=== PATIENT | female | born 1980 | race Caucasian/White ===

== ENCOUNTER 2017-06-15 18:05 | Emergency (ER) | payer OTHER ==
[~2017-06-15] VITALS: Ht 167.6 cm; Wt 90.7 kg
[2017-06-15 20:15] VITALS: BP 145/85
== END 2017-06-15 20:17 | disposition home or self-care (01) ==
LOC: FSED 18:05
DX: R07.89 Other chest pain (principal); R11.0 Nausea; I10 Essential (primary) hypertension
CPT/HCPCS: 71046; 80053; 81003; 81025; 82553; 83880; 84484; 85025; 85379; 93005; 99284

== ENCOUNTER 2017-12-26 10:15 | Emergency (ER) | payer OTHER ==
[~2017-12-26] VITALS: Ht 167.6 cm; Wt 102.1 kg
--- OUTSIDE RECORDS SUMMARY | 2017-12-26 10:17 | XMS REPORT | Clinical Summary ---
Author Author [facility] Organization [facility] Address Unknown Phone Unavailable Care Team Providers Care [employer] Architect Name Role Phone Consuelo Locke MD PCP Allergies Active Allergy Reactions Severity Noted Date Comments Tetracycline 10/07/2015 Current Medications Prescription Sig. Disp. Refills Start End Date Status Date valsartan-hydrochlorothia 09/03/19 Active zide (DIOVAN-HCT) 160-25 16 mg per tablet pravastatin (PRAVACHOL) 10/01/19 Active 40 MG tablet 16 levothyroxine (SYNTHROID, 10/02/19 Active LEVOTHROID) 100 MCG 16 tablet omeprazole (PriLOSEC) 20 Take 20 mg by mouth Active MG capsule daily. ranitidine (ZANTAC) 150 Take 150 mg by mouth as Active MG tablet needed for heartburn. DOCOSAHEXANOIC ACID/EPA Take by mouth daily. Active (FISH OIL ORAL) MULTIVITAMIN ORAL Take by mouth daily. Active loratadine-pseudoepHEDrin Take 1 tablet by mouth Active e (CLARITIN-D 24-hour) daily. 10-240 mg per 24 hr tablet Active Problems Problem Noted Date NAFLD (nonalcoholic fatty liver disease) 12/23/2015 Obesity (BMI 35.0-39.9 without comorbidity) 12/23/2015 Hypertension 12/23/2015 Hyperlipidemia 12/23/2015 Abnormal liver enzymes 12/23/2015 Immunity status testing 12/23/2015 Family History Medical History Relation Name Comments Heart disease Father Diabetes Maternal Grandmother Stomach cancer Maternal Uncle Diabetes Mother Pancreatic cancer Mother Pancreatic Cancer Relation Name Status Comments Father Maternal Grandmother Maternal Uncle Mother Social History Tobacco Use Types Packs/Day Years Used Date Never Smoker Alcohol Use Drinks/Week oz/Week Comments Yes Occasional Sex Assigned at Date Recorded Not on file Last Filed Vital Signs Not on file Plan of Treatment Health Maintenance Due Date Last Done Comments CERVICAL CANCER SCREENING 1999 INFLUENZA VACCINE 09/27/2017 Results Not on fileafter 12/25/2016 Insurance Payer Benefit Subscriber ID Type Phone Address Plan / Group AETNA AETNA xxxxxxxxxx HMO HMO,POS,EP O, [facility] [place] [id number]
[2017-12-26] MEDS ORDERED: KETOROLAC TROMETHAMINE 60 MG/2 ML VIAL IM ONE (10:45)
[2017-12-26] MEDS ORDERED: CEFTRIAXONE SOD 1 GM VIAL IM ONE (10:45)
[2017-12-26] MEDS ORDERED: MACROBID 100 M100 MG PO (10:55)
[2017-12-26] MEDS ORDERED: FLUCONAZOLE100 MG PO (10:55)
[2017-12-26] MEDS ORDERED: ROBAXIN-750750 MG PO (10:55)
[2017-12-26 11:17] VITALS: BP 141/89
== END 2017-12-26 11:21 | disposition home or self-care (01) ==
LOC: FSED 10:15
DX: R30.0 Dysuria (principal); M54.5 Low back pain; N30.90 Cystitis, unspecified without hematuria
CPT/HCPCS: 81003; 81025; 87086; 99283; J0696; J1885